=== PATIENT | male | born 1965 | race Hispanic/Latino ===

== ENCOUNTER 2017-12-15 14:09 | Observation (INO) | payer SELFPAY ==
[~2017-12-15] VITALS: Ht 170.2 cm; Wt 82.1 kg
[2017-12-15] MEDS ORDERED: SODIUM CHLORIDE 0.9% 1000ML 1,000 ML IV STA ×2 (14:20→15:57)
[2017-12-15] MEDS ORDERED: ONDANSETRON HCL INJ 2 MG/ML VIAL IV STA (14:20)
[2017-12-15] MEDS ORDERED: MORPHINE SULFATE INJ 4 MG/ML INJ IV STA (14:20)
[2017-12-15 14:35] LABS: BASOPHILS # (AUTO) 0.1 (0.0-0.1); BASOPHILS % 0.5 % (0.0-1.0); EOSINOPHILS # (AUTO) 0.1 (0.0-0.4); EOSINOPHILS % 0.5 % (0.0-6.0); HEMATOCRIT 45.5 % (38.2-49.6); HEMOGLOBIN 16.3 g/dL (14.0-18.0); LYMPHOCYTES # (AUTO) 1.9 (1.0-3.2); MEAN CORPUSCULAR HEMOGLOBIN 31.1 pg (28-32); MEAN CORPUSCULAR HGB CONC 35.8 g/dL (31-35); MEAN CORPUSCULAR VOLUME 86.8 fL (81-99); MONOCYTES % 9.2 % (4.4-11.3); NEUTROPHILS # (AUTO) 7.6 (2.1-6.9); NEUTROPHILS % 71.4 % (38.7-80.0); PLATELET COUNT 283 x10e3/uL (140-360); RED BLOOD COUNT 5.24 x10e6/uL (4.3-5.7); RED CELL DISTRIBUTION WIDTH 12.8 % (11.7-14.4)
[2017-12-15 15:04] LABS: ALBUMIN/GLOBULIN RATIO 1.1 (0.8-2.0); ANION GAP 17.6 mmol/L (8-16); CALCIUM 9.2 mg/dL (8.4-10.2); CREATININE, SERUM 1.67 mg/dL (0.72-1.25); POTASSIUM 3.6 mmol/L (3.5-5.1)
[2017-12-15 15:10] LABS: CREATINE KINASE MB 4.7 ng/mL (0-5.0)
[2017-12-15 16:44] LABS: BILIRUBIN,URINE NEGATIVE (NEGATIVE); CLARITY,URINE CLEAR (CLEAR); COLOR,URINE YELLOW (YELLOW); KETONES,URINE NEGATIVE (NEGATIVE); LEUKOCYTE ESTERASE ,URINE NEGATIVE (NEGATIVE); NITRITE,URINE NEGATIVE (NEGATIVE); PROTEIN,URINE DIPSTICK NEGATIVE (NEGATIVE); URINE UROBILINOGEN 0.2 mg/dL (0.2 - 1)
[2017-12-15 16:58] LABS: BACTERIA,URINE RARE /HPF; MUCUS,URINE FEW (RARE); RBC,URINE 0-5 /HPF (0-5); WBC,URINE (MAN) 0-5 /HPF (0-5)
[2017-12-15] MEDS ORDERED: SODIUM CHLORIDE 0.9% 1000ML 1,000 ML ONE (17:10)
[2017-12-15] MEDS ORDERED: SODIUM CHLORIDE 0.9% 1000ML 1,000 ML IV ONE (17:30)
[2017-12-15] MEDS ORDERED: SODIUM CHLORIDE FLUSH 10 ML SYR INJ PRN (18:15)
[2017-12-15] MEDS ORDERED: ONDANSETRON HCL INJ 2 MG/ML VIAL IV PRN (18:15)
[2017-12-15] MEDS ORDERED: MORPHINE SULFATE 2 MG/ML SYR IV PRN (18:15)
[2017-12-15] MEDS: SODIUM CHLORIDE 0.9% 1000ML 1,000 ML IV SCH (20:15)
[2017-12-15 22:55] VITALS: BP 127/81
[2017-12-15 23:18] VITALS: BP 127/81
[2017-12-15 23:21] VITALS: BP 127/81
[2017-12-15 23:27] LABS: CREATINE KINASE 963 IU/L (30-200)
[2017-12-16] MEDS: SODIUM CHLORIDE 0.9% 1000ML 1,000 ML IV SCH ×3 (02:04→08:18)
[2017-12-16 05:49] LABS: BASOPHILS # (AUTO) 0.1 (0.0-0.1); EOSINOPHILS # (AUTO) 0.2 (0.0-0.4); EOSINOPHILS % 2.4 % (0.0-6.0); HEMATOCRIT 41.4 % (38.2-49.6); HEMOGLOBIN 14.2 g/dL (14.0-18.0); LYMPHOCYTES # (AUTO) 2.1 (1.0-3.2); LYMPHOCYTES % 33.2 % (18.0-39.1); MEAN CORPUSCULAR HEMOGLOBIN 30.7 pg (28-32); MEAN CORPUSCULAR HGB CONC 34.3 g/dL (31-35); MEAN CORPUSCULAR VOLUME 89.6 fL (81-99); MONOCYTES # (AUTO) 0.7 (0.2-0.8); MONOCYTES % 10.5 % (4.4-11.3); NEUTROPHILS # (AUTO) 3.3 (2.1-6.9); NEUTROPHILS % 52.3 % (38.7-80.0); PLATELET COUNT 229 x10e3/uL (140-360); RED BLOOD COUNT 4.62 x10e6/uL (4.3-5.7); RED CELL DISTRIBUTION WIDTH 13.2 % (11.7-14.4)
[2017-12-16 05:50] VITALS: BP 130/66
[2017-12-16 06:32] LABS: BLOOD UREA NITROGEN 14 mg/dL (7-26); BUN/CREATININE RATIO 16 (6-25); CALCIUM 7.9 mg/dL (8.4-10.2); CARBON DIOXIDE 25 mmol/L (22-29); CHLORIDE 111 mmol/L (98-107); CREATININE, SERUM 0.86 mg/dL (0.72-1.25); EST GLOMERULAR FILTRATION RATE > 60 ML/MIN (60-); GLUCOSE 96 mg/dL (74-118); SODIUM 141 mmol/L (136-145)
[2017-12-16 08:18] VITALS: BP 142/63
[2017-12-16 11:38] VITALS: BP 126/82
[2017-12-16 12:06] VITALS: BP 126/82
--- NOTE | 2017-12-16 16:24 | History and Physical ---
HISTORY OF PRESENT ILLNESS: A 52-year-old male who claims he has no past medical history. He had been working outside and he started feeling dizzy with a lot of cramps. He came to the emergency room and was found to have rhabdomyolysis with mild acute renal failure. He was started immediately and IV fluids with normal saline 125 mL an hour. BUN and creatinine are back to normal. The CK dropped in value from 1000 to 900. Patient is still getting IV fluids. we are going to repeat another BMP to make sure the BUN and creatinine are normal and to make sure that the total CPK is lower than 900, hopefully in the 500s, and then he might be able to go home. He was told to drink plenty of Gatorade when he is outside to replace electrolytes and the fluid and to try to avoid working outside between noontime and 4 p.m. which is when the sun is more intense outside. REVIEW OF SYSTEMS: CARDIOVASCULAR: No chest pain or palpitation. RESPIRATORY: No shortness of breath. No cough. GASTROINTESTINAL: No nausea, vomiting or diarrhea. MUSCULOSKELETAL: He had plenty of cramps everywhere which are finally resolving. ALLERGIES: PENICILLIN. SOCIAL HISTORY: He drinks alcohol occasionally. He does not smoke. PAST MEDICAL HISTORY: Negative for any significant medical condition. PHYSICAL EXAMINATION: VITAL SIGNS: Blood pressure 126/82, temperature 97.6, heart rate 73 per minute, respiratory rate 18 per minute. Oxygen saturation is 98%. HEART: Shows regular rhythm. No murmur. No extra sounds. LUNGS: Clear bilaterally. ABDOMEN: Soft. EXTREMITIES: Show no evidence of cyanosis, edema or trauma. On the BMP sodium 14, potassium 4.0, chloride 111, CO2 25. BUN 14. Creatinine 0.86. Glucose 96. On the CBC white blood count 6.21, [id number], hematocrit 41.4, platelet count 299,000. AST 33, ALT 26. Total bilirubin 1.2, alkaline phosphatase 72. The last CK as of yesterday 1090 and today went down to 963. Troponins are negative so far. FINAL IMPRESSION: 1. Rhabdomyolysis secondary to heat exhaustion. 2. Acute renal failure which is completely resolved. PLAN OF TREATMENT: Continue normal saline 125 mL an hour. Zofran 4 mg IV q.4 h. as needed. Going to give him some Tylenol 500 mg q.4 h. as needed for pain. Patient going to be discharged only if the BUN and creatinine remain normal on the next blood work, and only if the total CPK is less than 300. Instructions have been given to the patient to increase the amount of fluid intake, especially Gatorade, when he is outside working, and to prevent the excessive heat outside. Job#: [id number] GH
[2017-12-16 17:11] VITALS: BP 132/85
[2017-12-16 17:12] LABS: ANION GAP 10.6 mmol/L (8-16); BLOOD UREA NITROGEN 11 mg/dL (7-26); BUN/CREATININE RATIO 14 (6-25); CALCIUM 8.3 mg/dL (8.4-10.2); CARBON DIOXIDE 27 mmol/L (22-29); CHLORIDE 108 mmol/L (98-107); CREATINE KINASE 669 IU/L (30-200); EST GLOMERULAR FILTRATION RATE > 60 ML/MIN (60-); GLUCOSE 90 mg/dL (74-118); POTASSIUM 3.6 mmol/L (3.5-5.1); SODIUM 142 mmol/L (136-145)
--- NOTE | 2017-12-16 22:02 | Discharge Summary ---
Patient is a 52-year-old man with no past medical history. He was working outside heat today. He started having a lot of cramps and dizziness, came to the emergency room. He was found to have rhabdomyolysis most likely secondary to heat exhaustion and mild acute renal failure, which is resolved after IV fluids have been given. The total CK was 1090 when he came yesterday and dropped to 963. Troponins are completely negative. BUN and creatinine are back to normal again. We are going to continue with normal saline and recheck. We are going to repeat a BMP and total CK today. As long as the patient has no evidence of acute renal failure and total CK is less than 500, patient might be able to go home today. I encouraged the patient to drink plenty of fluid outside, especially Gatorade and to stay away from the intense heat as much as he can. PHYSICAL EXAM HEART: Regular rhythm. Normal S1 and S2 sounds. LUNGS: Clear bilaterally. ABDOMEN: Soft. EXTREMITIES: No evidence cyanosis, edema, or trauma. LABORATORY DATA: On the BMP, sodium 141, potassium 4.0, chloride 111, CO2 of 25, BUN 14, creatinine 0.86, glucose 96. On the CBC, white blood count 6.21, hemoglobin 14.2, hematocrit 41.4, platelet count 228,000. AST 33, ALT 26, total bilirubin 1.2, alkaline phosphatase 72. FINAL IMPRESSION 1. Rhabdomyolysis, which is slowly resolving. 2. Acute renal failure, which is completely resolved. So, as I said we are going to do a BMP and a total CK. If the BUN and creatinine are normal and the total CPK is less than 500, patient might be able to go home with instructions to increase the fluid intake, especially Gatorade while working outside and to try to avoid extreme heat at least outside in these days. Dr. Corcoran will be on-call for me starting today at 04:30 p.m. until Tuesday 07:00 a.m. MATTHIAS PARSON MD Job#: [id number] VAS
== END 2017-12-16 18:20 | disposition home or self-care (01) ==
LOC: ER 14:09 → ERHOLD 18:04 → IMCU 22:53
PROVIDERS: ADMIT Internal Medicine; ATTEND Internal Medicine
DX: M62.82 Rhabdomyolysis (principal); E86.0 Dehydration; N17.9 Acute kidney failure, unspecified; X30.XXXA Exposure to excessive natural heat, initial encounter
CPT/HCPCS: 36415 ×2; 80048; 80053; 81001; 82550 ×2; 82553; 83735; 84484; 85025 ×2; 99284; G0378 ×2; J2270 ×2; J2405 ×2; J7030 ×2